=== PATIENT | female | born 1975 | race Caucasian/White ===

== ENCOUNTER 2022-11-28 10:26 | Emergency (ER) | payer BC, SELFPAY ==
[2022-11-28 10:44] VITALS: BP 132/80; PULSE 78; RESP 16; TEMP 36.6; O2SAT 99
--- NOTE | 2022-11-28 11:16 | ED.GENADULT ---
HPI - General Adult General Chief complaint: Upper Respiratory Infection Stated complaint: URI Source: patient and RN notes reviewed History of Present Illness HPI narrative: 46-year-old female presents to urgent care with complaints generalized fatigue. Patient states this past Wednesday her throat began to hurt which did resolve by Wednesday or . Patient states on Wednesday she worst and slept majority of the day. Patient reports joint pain and body aches on Wednesday and . Patient states her symptoms started to resolve yesterday and thought she was getting better. Patient states she woke up today and states she feels like her fatigue and body aches are returning. Denies any sore throat today. Patient reports an intermittent subjective fever and chills this past week. Denies any vomiting, diarrhea chest pain, or shortness of breath. Patient does report a cough. Denies ear pain. Patient has been taking [id number] cold and flu medication. Pt states she took 2 covid tests this past week which were negative. Related Data Allergies Allergy/AdvReac Type Severity Reaction Status Date / Time morphine Allergy Intermediate Nausea and Verified 11/28/22 10:59 Vomiting Review of Systems Review of Systems: Pertinent positives and pertinent negatives per HPI. PMF Past Medical History Medical History Recurrent herpes labialis Vitamin D deficiency Surgical History Surgical History H/O wisdom tooth extraction (~1996) History of ankle surgery (~05/18/11) Right ankle # ORIF Family History Family History Mother Diabetes mellitus Hypertension Family history of coronary artery disease Father Family history of coronary artery disease Social History Social History Smoking packs per day: 0.5 Smoking cigarettes per day: 10.0 Years smoked: 34 Smoking pack-years: 17.00 Smoking status: Current every day smoker Tobacco type: cigarettes Alcohol intake: current Substance use: never Substance use type: does not use Lack of Transportation: No Lack of Food: Never True Current Housing: I Have Housing Concerned About Future Housing: No Difficulty Paying Gas/Electric Bills: No Difficulty Paying for Meds: No Currently Unemployed: No Education: High School Diploma/GED Difficulty w/ Childcare or Family Care: No Living arrangements: with family Occupation/Education: occupation Gender identity (if verbalized by the patient): Female Sexual Orientation (if Verbalized by the Patient): Straight or Heterosexual Comments At the time of my signature, I reviewed and agree with the nursing past medical, surgical, social, and family history. There is no relevant family history pertinent to the patient complaint. Exam Narrative: GENERAL: This is a well-nourished, well-developed patient, in no apparent distress. HEAD: normocephalic, atraumatic. EYES: Sclera clear/white. Vision is grossly intact. EARS: External ears normal, auditory canals clear and without drainage, TMs normal without perforation. Hearing grossly intact. NOSE: External nose normal with no obvious nasal discharge, nares without redness, no rhinorrhea. THROAT: Mucous membranes moist, posterior pharynx clear. NECK: Neck supple, non-tender without lymphadenopathy, masses or thyromegaly. CARDIOVASCULAR: Regular rate and rhythm without murmurs, gallops, or rubs. RESPIRATORY: Clear to auscultation. Breath sounds equal bilaterally. No wheezes, rales, or rhonchi. SKIN: warm, intact with no suspicious lesions or rash, good texture and turgor. NEURO: awake, alert, and oriented to person, place and time. There were no obvious focal neurologic abnormalities. Course Course Level of Care: Ex
== END 2022-11-28 11:20 | disposition home or self-care (01) ==
PROVIDERS: Emergency Provider Nurse Practitioner Family; PCP Family Medicine
DX: B34.9 Viral infection, unspecified (principal); F17.210 Nicotine dependence, cigarettes, uncomplicated
CPT/HCPCS: 99213; G0463